=== PATIENT | male | born 1980 | race African-American/Black ===

== ENCOUNTER 2017-11-29 08:16 | Emergency (ER) | payer BC ==
[~2017-11-29] VITALS: Ht 188 cm; Wt 86.2 kg
[2017-11-29 09:11] LABS: Basophils # (auto) 0.1 uL; Basophils % (auto) 0.8 % (0.0-2.0); Eosinophils # (auto) 0 uL; Eosinophils % (auto) 0.1 % (0.0-7.0); Hemoglobin 15.4 g/dL (13.5-17.5); Lymphocytes # (auto) 1.6 uL; Lymphocytes % (auto) 15.7 % (10.0-50.0); Mean Corpuscular Hemoglobin 28.6 pg (28.0-32.0); Mean Corpuscular Hgb Conc. 35.8 g/dL (32.0-36.0); Mean Corpuscular Volume 79.8 fL (80.0-100.0); Monocytes # (auto) 0.9 uL; Neutrophils # (auto) 7.7 uL; Neutrophils % (auto) 74.4 % (37.0-80.0); Platelet Count (auto) 202 10^3/uL (140-450); Red Blood Cells 5.38 10^6/uL (4.5-5.90); Red Cell Distribution Width 14.8 % (11.8-14.3); White Blood Cell 10.3 10^3/uL (4.4-10.8)
[2017-11-29 09:22] LABS: Urine Bacteria FEW /hpf (None Seen); Urine Blood TRACE /uL (Negative); Urine Hyaline Cast MOD /lpf (0 - 2); Urine Mucus FEW (None Seen); Urine Specific Gravity 1.025 (1.001-1.035); Urine WBC 1 /hpf (0 - 3)
[2017-11-29 09:32] LABS: Alcohol, Urine < 3.0 mg/dL (0-5); Amphetamine Screen, Urine NEGATIVE (NEGATIVE); Barbiturate Scree,Urine NEGATIVE (NEGATIVE); Benzodiazephine Screen, Urine NEGATIVE (NEGATIVE); Cannabinoid Screen, Urine POSITIVE (NEGATIVE); Cocaine Screen, Urine NEGATIVE (NEGATIVE); Opiate Scree,Urine NEGATIVE (NEGATIVE); Phencyclidine Screen, Urine NEGATIVE (NEGATIVE)
[2017-11-29 10:45] LABS: BUN/Creatinine Ratio 5.1
[2017-11-29 10:46] LABS: Calcium 7.4 mg/dL (8.5-10.1); Potassium 7.1 mmol/L (3.5-5.1)
[2017-11-29 10:47] LABS: Albumin 3.4 g/dL (3.4-5.0); Bilirubin, Total 1.2 mg/dL (0.2-1.0); Total Protein 8.9 g/dL (6.4-8.2)
[2017-11-29] MEDS ORDERED: ALBUTEROL SULF 2.5 MG/0.5ML(0.5%) NEB SOLN NEB STA (10:47)
[2017-11-29] MEDS ORDERED: CALCIUM GLUC 4.65meq/50ml D5AE 50 ML IV ONE (11:00)
[2017-11-29] MEDS ORDERED: VANCOMYCIN 1GM/250ML 250 ML IV ONE (11:00)
[2017-11-29] MEDS ORDERED: InsuLIN REG 1unit/0.01ml Soln (100units/ml) IV ONE (11:00)
[2017-11-29] MEDS ORDERED: SODIUM BICARBONATE 8.4% INJ 50ML SYRINGE IV ONE (11:00)
[2017-11-29] MEDS ORDERED: DEXTROSE (50%) 50ML SYRG IV ONE (11:00)
[2017-11-29 11:03] VITALS: BP 131/77
[2017-11-29] MEDS ORDERED: SODIUM CHLORIDE 0.9% 1,000 ML IV SCH ×3 (13:07→19:07)
[2017-11-29] MEDS ORDERED: NITROGLYCERIN 0.4 MG SL TAB SL PRN (13:15)
[2017-11-29] MEDS ORDERED: PANTOPRAZOLE 40 MG/10 ML VIAL IV ONE (13:15)
[2017-11-29] MEDS ORDERED: DEXTROSE (50%) 50ML SYRG IV PRN (13:15)
[2017-11-29] MEDS ORDERED: MORPHINE SULFATE 8mg/ml INJ SDV IV PRN ×2 (13:15)
[2017-11-29] MEDS ORDERED: ONDANSETRON HCL 4 MG/2 ML VIAL IV PRN (13:15)
[2017-11-29] MEDS ORDERED: HYDROcodone-ACET 5/325MG TAB PO PRN (13:15)
[2017-11-29] MEDS ORDERED: InsuLIN R (HUMAN) 100 UNITS in SODIUM CHL 0.9% 99 ML IV SCH (13:45)
[2017-11-29 13:59] LABS: Potassium 5.2 mmol/L (3.5-5.1)
[2017-11-29 14:04] LABS: Albumin 3.3 g/dL (3.4-5.0); BUN/Creatinine Ratio 4.4; Calcium 7.7 mg/dL (8.5-10.1)
[2017-11-29 14:07] LABS: Bilirubin, Total 1.1 mg/dL (0.2-1.0)
[2017-11-29 14:34] LABS: Total Protein 8.3 g/dL (6.4-8.2)
[2017-11-29 15:48] LABS: Phosphorus 2.6 mg/dL (2.5-4.90)
[2017-11-29 16:15] LABS: Alanine Aminotransferase 27.6 U/L (16-61)
[2017-11-30] MEDS ORDERED: PANTOPRAZOLE 40 MG/10 ML VIAL IV SCH (10:00)
== END 2017-11-29 14:29 | disposition left against medical advice (07) ==
LOC: ER 08:16 → UNDOADMIN 08:17 → TELE 08:17 → ER 14:29
DX: K85.90 Acute pancreatitis without necrosis or infection, unspecified (principal); E10.10 Type 1 diabetes mellitus with ketoacidosis without coma; F12.10 Cannabis abuse, uncomplicated; Z88.0 Allergy status to penicillin; Z53.29 Procedure and treatment not carried out because of patient's decision for other reasons
CPT/HCPCS: 36415; 36600; 74176; 80053; 80307; 81001; 82010; 82150; 82805; 82962; 83605; 83690; 83735; 84100; 85025; 87040; 93005; 94640; 96365; 96367; 96375; 99285; J0610; J1815; J3370; J7030; J7042